=== PATIENT | male | born 1980 | race Hispanic/Latino ===

== ENCOUNTER 2018-11-09 08:20 | Inpatient (IN) | payer OTHER ==
[~2018-11-09] VITALS: Ht 185.4 cm; Wt 88.2 kg
[2018-11-09 09:25] LABS: APPEARANCE,URINE Clear (CLEAR); BILIRUBIN,URINE Negative (NEGATIVE); COLOR,URINE Yellow (YELLOW); GLUCOSE, URINE (UA) Negative (NEGATIVE); KETONES,URINE Negative (NEGATIVE); LEUKOCYTE ESTERASE ,URINE Negative (NEGATIVE); NITRATE,URINE Negative (NEGATIVE); OCCULT BLOOD,URINE Negative (NEGATIVE); PROTEIN,URINE Negative (NEGATIVE)
[2018-11-09 09:38] LABS: BASOPHILS % (AUTO) 2.4 % (0.0-5.0); HEMATOCRIT 28.3 % (42-54); LYMPHOCYTES % (AUTO) 31.5 % (21.0-51.0); MEAN CORPUSCULAR HEMOGLOBIN 16.6 pg (27.0-33.0); MEAN CORPUSCULAR HGB CONC 27.7 g/dL (32.0-36.0); MEAN CORPUSCULAR VOLUME 59.9 fL (79-99); MONOCYTES % (AUTO) 8.7 % (3.0-13.0); NEUTROPHILS % (AUTO) 50.4 % (40.0-77.0); PLATELET COUNT (AUTO) 566 K/uL (130-400); RED BLOOD CELL COUNT(AUTO) 4.72 MIL/uL (4.50-6.20); RED CELL DISTRIBUTION WIDTH 26.8 % (11.0-15.5); WHITE BLOOD COUNT (AUTO) 5.4 K/uL (4.8-10.8)
[2018-11-09 09:43] LABS: CREATININE 0.8 mg/dL (0.5-1.5); POTASSIUM 4.1 mmol/L (3.5-5.1)
[2018-11-09 09:47] LABS: INR 0.98 (0.85-1.15); PARTIAL THROMBOPLASTIN TIME 25.1 SEC (26.3-35.5); PROTHROMBIN TIME 10.3 SEC (9.6-11.6)
[2018-11-09 09:48] LABS: ALBUMIN 3.4 g/dL (3.5-5.0); BILIRUBIN,TOTAL 0.4 mg/dL (0.2-1.0); TOTAL PROTEIN, SERUM 7.4 g/dL (6.0-8.3)
[2018-11-09] MEDS ORDERED: ONDANSETRON HCL 4 MG/2 ML VIAL IV PRN (13:30)
[2018-11-09] MEDS ORDERED: ONDANSETRON HCL 4 MG/2 ML VIAL ONE (14:11)
[2018-11-09] MEDS ORDERED: MORPHINE SULFATE 4 MG/1ML SYG ONE (14:12)
[2018-11-09 16:52] VITALS: BP 122/73
[2018-11-09] MEDS ORDERED: FERS325 PO (17:33)
[2018-11-09] MEDS ORDERED: DOCU-116 PO (17:33)
[2018-11-09] MEDS: SODIUM CHLORIDE 0.9% 1000ML 1,000 ML IV SCH (18:04)
[2018-11-09] MEDS: MORPHINE SULFATE 4 MG/1ML SYG IV PRN (18:04)
[2018-11-09 18:43] LABS: HEMATOCRIT 29.4 % (42-54)
[2018-11-09] MEDS ORDERED: BISACODYL 5 MG TABLET.DR PO SCH (18:45)
[2018-11-09 19:00] VITALS: BP 119/74
[2018-11-09] MEDS: FAMOTIDINE/PF 20 MG/2 ML VIAL IV SCH (21:36)
[2018-11-09 23:00] VITALS: BP 117/74
[2018-11-09 23:05] VITALS: BP 115/61
[2018-11-10] MEDS: MORPHINE SULFATE 4 MG/1ML SYG IV PRN ×4 (00:43→21:11)
[2018-11-10 03:00] VITALS: BP 108/66
[2018-11-10 05:32] LABS: MEAN CORPUSCULAR HEMOGLOBIN 17.9 pg (27.0-33.0); MEAN CORPUSCULAR HGB CONC 29.5 g/dL (32.0-36.0); MEAN CORPUSCULAR VOLUME 60.6 fL (79-99); NUCLEATED RED BLOOD CELLS 0.1 % (0.0-0.19); PLATELET COUNT (AUTO) 559 K/uL (130-400); RED BLOOD CELL COUNT(AUTO) 4.95 MIL/uL (4.50-6.20); RED CELL DISTRIBUTION WIDTH 26.6 % (11.0-15.5); WHITE BLOOD COUNT (AUTO) 7.5 K/uL (4.8-10.8)
[2018-11-10] MEDS ORDERED: IOHEXOL-350 75 ML VIAL IV ONE (08:20)
[2018-11-10 08:29] VITALS: BP 101/66
[2018-11-10] MEDS: SODIUM CHLORIDE 0.9% 1000ML 1,000 ML IV SCH ×2 (09:27→17:08)
[2018-11-10] MEDS: FAMOTIDINE/PF 20 MG/2 ML VIAL IV SCH ×2 (10:02→21:11)
[2018-11-10] MEDS: FERROUS SULFATE 325 MG TABLET.DR PO SCH ×2 (10:02→21:11)
[2018-11-10 11:22] VITALS: BP 116/68
[2018-11-10] MEDS ORDERED: PEG 3350/NA SULF,BICARB,CL/KCL 4000 ML SOLN PO SCH ×2 (14:00→17:00)
--- NOTE | 2018-11-10 15:20 | NUR ---
DOMINIQUE TORREZ INITIATED, NO ORDER FOUND FOR COLONOSCOPY PROCEDURE. PAGE SENT TO DR BELTRAN FOR ORDERS. PENDING CALL BACK.
[2018-11-10 16:06] VITALS: BP 114/70
--- NOTE | 2018-11-10 16:09 | NUR ---
HOSPITALIST MD ROUNDED ON THE PATIENT, ORDER RECEIVED TO INCREASE PAIN MEDICATION.
[2018-11-10 19:00] VITALS: BP 116/68
--- NOTE | 2018-11-10 19:01 | NUR ---
D/C PLAN CM spoke to pt regarding d/c planning. Spouse at bedside. Pt is ind with ADL's. State spouse can assist if needed. CM provided community resources packet. Plan to home. CM to f/u Addendum: 11/10/18 at 1902 by SHAUNNA ALVAREZ CM Amended: Links added.
[2018-11-10 23:00] VITALS: BP 115/70
[2018-11-11] VITALS (11 sets, daily range): BP systolic 102–137; BP diastolic 52–90
[2018-11-11] MEDS: MORPHINE SULFATE 4 MG/1ML SYG IV PRN ×4 (03:14→21:12)
[2018-11-11 05:07] LABS: BASOPHILS % (AUTO) 1.7 % (0.0-5.0); EOSINOPHILS % (AUTO) 6.8 % (0.0-8.0); HEMATOCRIT 28.4 % (42-54); LYMPHOCYTES % (AUTO) 29.5 % (21.0-51.0); MEAN CORPUSCULAR HEMOGLOBIN 17.3 pg (27.0-33.0); MEAN CORPUSCULAR HGB CONC 28.6 g/dL (32.0-36.0); MEAN CORPUSCULAR VOLUME 60.5 fL (79-99); MONOCYTES % (AUTO) 11.6 % (3.0-13.0); NEUTROPHILS % (AUTO) 50.4 % (40.0-77.0); PLATELET COUNT (AUTO) 550 K/uL (130-400); RED BLOOD CELL COUNT(AUTO) 4.69 MIL/uL (4.50-6.20); RED CELL DISTRIBUTION WIDTH 26.3 % (11.0-15.5); WHITE BLOOD COUNT (AUTO) 5.1 K/uL (4.8-10.8)
[2018-11-11 05:16] LABS: CREATININE 0.8 mg/dL (0.5-1.5); POTASSIUM 3.5 mmol/L (3.5-5.1)
[2018-11-11] MEDS ORDERED: PROPOFOL 10 MG/ML 20ML VIAL IV ONE ×3 (07:24→08:41)
[2018-11-11] MEDS ORDERED: LIDOCAINE HCL-MPF 2% 5ML VIAL ONE (07:25)
[2018-11-11] MEDS ORDERED: MIDAZOLAM HCL 1 MG/ML 2ML VIAL ONE (07:37)
[2018-11-11] MEDS ORDERED: GLYCOPYRROLATE 0.2 MG/ML 5 ML VIAL ONE (07:42)
[2018-11-11] MEDS ORDERED: EPHEDRINE SULFATE 50 MG/ML AMPULE ONE (09:07)
[2018-11-11] MEDS: FAMOTIDINE/PF 20 MG/2 ML VIAL IV SCH ×2 (11:02→21:12)
[2018-11-11] MEDS: FERROUS SULFATE 325 MG TABLET.DR PO SCH ×2 (11:02→21:12)
[2018-11-11] MEDS: SODIUM CHLORIDE 0.9% 1000ML 1,000 ML IV SCH (21:23)
[2018-11-12 00:06] VITALS: BP 101/58
[2018-11-12] MEDS: MORPHINE SULFATE 4 MG/1ML SYG IV PRN ×5 (03:42→21:41)
[2018-11-12 04:08] VITALS: BP 95/62
[2018-11-12 05:12] LABS: HEMATOCRIT 27.9 % (42-54); MEAN CORPUSCULAR HEMOGLOBIN 18.1 pg (27.0-33.0); MEAN CORPUSCULAR HGB CONC 29.7 g/dL (32.0-36.0); MEAN CORPUSCULAR VOLUME 60.9 fL (79-99); PLATELET COUNT (AUTO) 508 K/uL (130-400); RED BLOOD CELL COUNT(AUTO) 4.59 MIL/uL (4.50-6.20); RED CELL DISTRIBUTION WIDTH 26.9 % (11.0-15.5); WHITE BLOOD COUNT (AUTO) 6.1 K/uL (4.8-10.8)
[2018-11-12 05:25] LABS: CREATININE 0.9 mg/dL (0.5-1.5); POTASSIUM 3.5 mmol/L (3.5-5.1)
--- NOTE | 2018-11-12 06:01 | NUR ---
PIV PT CLAIMS OF TENDERNESS TO PIV ON THE RT AC AND WANTED IT TO BE REMOVED. DISCONTINUED PIV WITH CATHETER INTACT. SALINE LOCKED PIV ON LEFT HAND PT REQUESTED TO SHOWER. PCP IN TO ASSIST PT. Addendum: 11/12/18 at 0603 by PAVITHRA LAUGHLIN RN RN Amended: Links added.
[2018-11-12 07:00] VITALS: BP 110/71
[2018-11-12] MEDS: FAMOTIDINE/PF 20 MG/2 ML VIAL IV SCH ×2 (08:09→21:40)
[2018-11-12] MEDS: FERROUS SULFATE 325 MG TABLET.DR PO SCH ×2 (08:10→21:40)
[2018-11-12 11:00] VITALS: BP 110/59
[2018-11-12 16:00] VITALS: BP 102/55
[2018-11-12 20:00] VITALS: BP 115/80
[2018-11-12] MEDS: SODIUM CHLORIDE 0.9% 1000ML 1,000 ML IV SCH (21:47)
[2018-11-13] VITALS: BP 110/66
[2018-11-13] MEDS: MORPHINE SULFATE 4 MG/1ML SYG IV PRN ×4 (02:26→17:20)
[2018-11-13 04:00] VITALS: BP 108/64
[2018-11-13 05:44] LABS: HEMATOCRIT 29.5 % (42-54); MEAN CORPUSCULAR HGB CONC 29.3 g/dL (32.0-36.0); MEAN CORPUSCULAR VOLUME 61.3 fL (79-99); PLATELET COUNT (AUTO) 587 K/uL (130-400); RED BLOOD CELL COUNT(AUTO) 4.81 MIL/uL (4.50-6.20); RED CELL DISTRIBUTION WIDTH 27.1 % (11.0-15.5); WHITE BLOOD COUNT (AUTO) 6.6 K/uL (4.8-10.8)
[2018-11-13 05:55] LABS: CREATININE 0.8 mg/dL (0.5-1.5); POTASSIUM 4.5 mmol/L (3.5-5.1)
[2018-11-13 08:03] VITALS: BP 112/69
[2018-11-13] MEDS: FAMOTIDINE/PF 20 MG/2 ML VIAL IV SCH (10:29)
[2018-11-13] MEDS: FERROUS SULFATE 325 MG TABLET.DR PO SCH (10:29)
[2018-11-13] MEDS ORDERED: FERS325 PO (10:30)
[2018-11-13 11:39] VITALS: BP 109/66
[2018-11-13] MEDS ORDERED: FAMO-136 PO (11:50)
[2018-11-13 16:12] VITALS: BP 117/61
--- NOTE | 2018-11-13 18:00 | NUR ---
DISCHARGE INSTRUCTIONS GIVEN. PRESCRIPTIONS GIVEN. IV DISCONTINUED WITH INNER CANNULA INTACT. ALL QUESTIONS ANSWERED. INSTRUCTED PATIENT TO FOLLOW UP WITH ALL DOCTORS PER DISCHARGE INSTRUCTIONS.
== END 2018-11-13 18:30 | disposition home or self-care (01) | DRG 394 ==
LOC: EDH 08:20 → EDHIP 08:21 → 3BH 16:10
PROVIDERS: ADMIT Family Medicine; ATTEND Family Medicine
PROC: 30233N1 Transfusion of Nonautologous Red Blood Cells into Peripheral Vein, Percutaneous Approach (ICD-10-PCS; 2018-11-09)
PROC: 0DJD8ZZ Inspection of Lower Intestinal Tract, Via Natural or Artificial Opening Endoscopic (ICD-10-PCS; principal; 2018-11-11)
PROC: 0DBK8ZZ Excision of Ascending Colon, Via Natural or Artificial Opening Endoscopic (ICD-10-PCS; 2018-11-11)
PROC: 0DBL8ZZ Excision of Transverse Colon, Via Natural or Artificial Opening Endoscopic (ICD-10-PCS; 2018-11-11)
PROC: 0DBN8ZZ Excision of Sigmoid Colon, Via Natural or Artificial Opening Endoscopic (ICD-10-PCS; 2018-11-11)
PROC: 0DBM8ZZ Excision of Descending Colon, Via Natural or Artificial Opening Endoscopic (ICD-10-PCS; 2018-11-11)
PROC: 0DBH8ZZ Excision of Cecum, Via Natural or Artificial Opening Endoscopic (ICD-10-PCS; 2018-11-11)
PROC: 0DB98ZX Excision of Duodenum, Via Natural or Artificial Opening Endoscopic, Diagnostic (ICD-10-PCS; 2018-11-11)
DX: K62.89 Other specified diseases of anus and rectum (principal); C21.8 Malignant neoplasm of overlapping sites of rectum, anus and anal canal; D62 Acute posthemorrhagic anemia; D12.6 Benign neoplasm of colon, unspecified; D12.5 Benign neoplasm of sigmoid colon; D12.4 Benign neoplasm of descending colon; D12.3 Benign neoplasm of transverse colon; D12.2 Benign neoplasm of ascending colon; D12.0 Benign neoplasm of cecum; K31.89 Other diseases of stomach and duodenum; Z86.010 Personal history of colon polyps
CPT/HCPCS: 36415; 43239; 45341; 45380; 45385; 71045; 71270; 74178; 80048; 80053; 81003; 82150; 82378; 83690; 85014; 85018; 85025; 85027; 85610; 85730; 86850; 86900; 86901; 86922; 93005; G0378; G9654; J2250; J2270; J2405; J2704; J3490; J7030; P9016; Q9967